=== PATIENT | female | born 1960 | race Caucasian/White ===

== ENCOUNTER → 2023-07-08 10:01 | Outpatient (CLI) | payer OTHER, SELFPAY ==
--- NOTE | 2023-07-08 10:04 | DI.US.S_ITS ---
PROCEDURE: US CAROTID DOPPLER BI INDICATIONS: STENOSIS TECHNIQUE: Color and pulse Doppler interrogation was performed of both carotid systems, with image documentation and velocity measurements. COMPARISON: None. FINDINGS: Stenosis calculations are based on SRU ([employer] in [employer]) criteria. Right side: Brachial blood pressure: 105/67 mm Hg. Common carotid artery peak systolic velocity: 83 cm/sec. Internal carotid artery peak systolic velocity: 102 cm/sec. Internal carotid artery end diastolic velocity: 52 cm/sec. External carotid artery peak systolic velocity: 76 cm/sec. ICA/CCA peak systolic ratio: 1.2 . Gaspar scale imaging description: Minimal Percent internal carotid artery stenosis: No hemodynamic significant stenosis. Vertebral artery: Flow direction is antegrade. Left side: Brachial blood pressure: 102/71 mm Hg. Common carotid artery peak systolic velocity: 109 cm/sec. Internal carotid artery peak systolic velocity: 109 cm/sec. Internal carotid artery end diastolic velocity: 50 cm/sec. External carotid artery peak systolic velocity: 84 cm/sec. ICA/CCA peak systolic ratio: 1.0 Gaspar scale imaging description: Minimal Percent internal carotid artery stenosis: No hemodynamically significant stenosis. Vertebral artery: Flow direction is antegrade. IMPRESSION: No hemodynamically significant stenosis seen bilaterally Dictated by: Geovanny Sommers M.D. on 07/08/2023 at 18:15 Approved by: Geovanny Sommers M.D. on 07/08/2023 at 18:22
== END ==
LOC: US 10:03
PROVIDERS: Referring Provider Nurse Practitioner Family; Visit Provider Nurse Practitioner Family
DX: I65.29 Occlusion and stenosis of unspecified carotid artery (principal)
CPT/HCPCS: 93880